=== PATIENT | male | born 1980 | race Caucasian/White ===

== ENCOUNTER 2017-08-28 14:24 | Emergency (ER) | payer OTHER ==
[~2017-08-28] VITALS: Ht 175.3 cm; Wt 108.9 kg
[~2017-08-28 14:24] MED LIST: AZIT250 PO; BUPR100ER PO; BUSP5; CETI10 PO; CITA20 PO; CLIN150 PO; Cleocin HCl150 MG PO; Cleocin HCl300 MG PO; DIPH50 PO; ERYSTE250 PO; HYDACE5 PO; HYDPAM50 PO; IBUP200; IBUP400 PO; MULVITA; NEOPOLBACA TP; Naprosyn500 MG PO; Norco 5-325 Ta1 EACH PO; RXCLIN PO; RXTRAM50 PO; SULTRIDS PO; TRAM50 PO
[2017-08-28] MEDS ORDERED: Cleocin HCl300 MG PO (14:49)
[2017-08-28] MEDS ORDERED: Naprosyn500 MG PO (14:49)
== END 2017-08-28 14:58 | disposition home or self-care (01) ==
LOC: ER 14:24
DX: K04.7 Periapical abscess without sinus (principal); F17.290 Nicotine dependence, other tobacco product, uncomplicated; Z88.0 Allergy status to penicillin; Z91.040 Latex allergy status; Z79.899 Other long term (current) drug therapy
CPT/HCPCS: 99283

== ENCOUNTER 2019-11-15 15:49 | Emergency (ER) | payer OTHER ==
[~2019-11-15] VITALS: Ht 175.3 cm; Wt 104.3 kg
[2019-11-15] MEDS ORDERED: Amoxicillin500 MG PO (17:15)
== END 2019-11-15 17:36 | disposition home or self-care (01) ==
LOC: ER 15:49
DX: L03.211 Cellulitis of face (principal); K02.9 Dental caries, unspecified; Z88.0 Allergy status to penicillin; Z91.040 Latex allergy status; Z79.899 Other long term (current) drug therapy
CPT/HCPCS: 99283

== ENCOUNTER 2020-08-05 14:38 | Emergency (ER) | payer OTHER ==
[~2020-08-05] VITALS: Ht 175.3 cm; Wt 102.1 kg
[~2020-08-05 14:38] MED LIST changes: +Amoxicillin500 MG PO
[2020-08-05] MEDS ORDERED: AMOCLA875 PO (15:07)
== END 2020-08-05 15:20 | disposition home or self-care (01) ==
LOC: ER 14:38
DX: K04.7 Periapical abscess without sinus (principal); F17.290 Nicotine dependence, other tobacco product, uncomplicated; Z79.899 Other long term (current) drug therapy
CPT/HCPCS: 99283

== ENCOUNTER 2021-06-06 14:30 | Emergency (ER) | payer OTHER ==
[~2021-06-06] VITALS: Ht 175.3 cm; Wt 108.9 kg
[~2021-06-06 14:30] MED LIST changes: +AMOCLA875 PO
[2021-06-06] MEDS ORDERED: Amoxicillin875 MG PO (16:17)
== END 2021-06-06 16:45 | disposition home or self-care (01) ==
LOC: ER 14:30
DX: K04.7 Periapical abscess without sinus (principal); Z88.0 Allergy status to penicillin; Z91.040 Latex allergy status; Z79.899 Other long term (current) drug therapy; F17.290 Nicotine dependence, other tobacco product, uncomplicated
CPT/HCPCS: 99283; A9270

== ENCOUNTER 2022-04-17 13:38 | Emergency (ER) | payer OTHER ==
[~2022-04-17] VITALS: Ht 175.3 cm; Wt 104.3 kg
[~2022-04-17 13:38] MED LIST changes: +Amoxicillin875 MG PO
[2022-04-17] MEDS ORDERED: Amoxicillin500 MG PO (14:09)
== END 2022-04-17 14:15 | disposition home or self-care (01) ==
LOC: ER 13:38
DX: K04.7 Periapical abscess without sinus (principal); F17.290 Nicotine dependence, other tobacco product, uncomplicated; Z88.0 Allergy status to penicillin; Z91.040 Latex allergy status; Z79.899 Other long term (current) drug therapy
CPT/HCPCS: 99282

== ENCOUNTER 2023-02-24 16:30 | Emergency (ER) | payer OTHER ==
[~2023-02-24] VITALS: Ht 175.3 cm; Wt 104.3 kg
[~2023-02-24 16:30] MED LIST changes: +ADVAIR HFA 230-28 GM INH; +ALBU90OI INH; +ATOR40TA PO; +Aspir 8181 MG PO; +CLOP75 PO; +Calcium Carbon500 MG PO; +ECONAZOLE NITRA30 GM TOP; +GABA100 PO; +JARDIANCE10 MG PO; +MAGCHL64ER; +METO25ER PO; +MULVITA PO; +NITR.4SL SL; +SPIR25 PO; +TAMS.4ER PO; +TORSE20 PO
[2023-02-24 17:21] LABS: BASOPHILS ABSOLUTE AUTO 0.05 K/mm3 (0.00-0.23); BASOPHILS PERCENT AUTO 1 % (0-2); EOSINOPHILS ABSOLUTE AUTO 0.28 K/mm3 (0.00-0.68); EOSINOPHILS PERCENT AUTO 3 % (0-6); Hematocrit 44.4 % (37.0-53.0); IMMATURE GRAN ABSOLUTE AUTO 0.02 K/mm3 (0.00-0.10); IMMATURE GRAN PERCENT AUTO 0 % (0-1); LYMPHOCYTES ABSOLUTE AUTO 2.71 K/mm3 (0.84-5.20); LYMPHOCYTES PERCENT AUTO 32 % (21-46); MONOCYTES ABSOLUTE AUTO 0.51 K/mm3 (0.16-1.47); MONOCYTES PERCENT AUTO 6 % (4-13); Mean Corpuscular HGB 27.8 pg (26.0-34.0); Mean Corpuscular HGB Conc 33.8 g/dL (31.5-36.5); Mean Corpuscular Volume 82 fL (80-100); Mean Platelet Volume 8.7 fL (9.1-12.4); NEUTROPHILS ABSOLUTE AUTO 4.84 K/mm3 (1.96-9.15); NEUTROPHILS PERCENT AUTO 58 % (41-73); Platelet Count 322 K/mm3 (150-400); RDW Coefficient Variation 12.7 % (11.7-14.2); RDW Standard Deviation 38.1 fL (35.1-46.3); White Blood Cell Count 8.41 K/mm3 (4.00-11.30)
[2023-02-24 17:44] LABS: Albumin/Globulin Ratio 1.1 (0.8-1.8); Bilirubin, Total 0.5 mg/dL (0.1-1.0); Bun/Creatinine Ratio 10.2 (12.0-20.0); Calcium, Blood 9.5 mg/dL (8.5-10.1); Creatinine, Blood 0.88 mg/dL (0.60-1.20); Globulin, Blood 3.8 g/dL (2.2-4.0); Potassium, Blood 3.7 mmol/L (3.5-5.5); Total Protein, Blood 7.8 g/dL (6.4-8.2)
[2023-02-24 18:00] LABS: Source, Urine Clean Catch
[2023-02-24 18:21] LABS: Bilirubin, Urine Neg (Neg); Blood, Urine 3+ (Neg); Color, Urine Yellow (P-Yellow); Glucose Qualitative, Urine Neg (Neg); Ketones, Urine Neg (Neg); Leukocyte Esterase, Urine Neg (Neg); Nitrite, Urine Neg (Neg); Protein, Urine 1+ (Neg); Urobilinogen, Urine 1+ (Normal)
[2023-02-24 18:40] LABS: Appearance, Urine Hazy (Clear)
[2023-02-24 18:42] LABS: Amorphous Light (0-Heavy); Bacteria Many /hpf; Hyaline Casts 0-2 /lpf (0-2); Mucus Mod (0-Heavy); Squamous Epithelial Cells Rare /hpf (Few); White Blood Cells, Urine 0-2 /hpf (0-5)
[2023-02-24 19:13] LABS: Triglycerides 134 mg/dL (30-160)
[2023-02-24] MEDS ORDERED: Ibuprofen600 MG PO (20:23)
[2023-02-24 20:30] VITALS: BP 124/78
== END 2023-02-24 20:33 | disposition home or self-care (01) ==
LOC: ER 16:30
PROVIDERS: Emergency Medicine; Student in an Organized Health Care Education/Training Program
DX: R10.11 Right upper quadrant pain (principal); F17.210 Nicotine dependence, cigarettes, uncomplicated; Z88.0 Allergy status to penicillin; Z91.040 Latex allergy status; Z79.82 Long term (current) use of aspirin; Z79.899 Other long term (current) drug therapy
CPT/HCPCS: 74177; 76705; 80053; 81001; 83690; 84478; 85025; 93005; 93010; 96361; 96374; 99284-25; J1885; J7120; Q9967